=== PATIENT | female | born 1945 | race Caucasian/White ===

== ENCOUNTER → 2018-06-01 15:30 | Outpatient (CLI) | payer MEDICARE, OTHER, SELFPAY | PROVIDERS: Family Provider Family Medicine; PCP Family Medicine; Referring Provider Otolaryngology; Visit Provider Otolaryngology | DX: J32.9 Chronic sinusitis, unspecified (principal) | CPT/HCPCS: 87070; 87205 ==

== ENCOUNTER → 2020-09-05 15:42 | Outpatient (CLI) | payer MEDICARE, OTHER, SELFPAY ==
[2020-09-05 18:08] LABS: ALB/GLOB Ratio 1.1 RATIO (0.9-2.4); AST(SGOT) 22 U/L (15-37); Alanine Aminotransfer ALT/SGPT 27 U/L (13-56); Albumin, Serum 3.8 g/dL (3.2-5.0); Alkaline Phosphatase 71 U/L (45-117); Anion Gap 6 (5-15); BUN 21 mg/dL (7-18); BUN/Creat Ratio 26.9 RATIO (10-20); Calcium,Total 8.8 mg/dL (8.5-10.1); Chloride 105 mmol/L (98-107); Creatinine, Serum 0.78 mg/dL (0.55-1.02); EST Glomerular Filtration Rate 76 mL/min (>60); Est Glom Filt Rate - Afr Amer 92 mL/min (>60); Globulin 3.4 g/dL (2.2-4.2); Glucose 89 mg/dL (74-106); Magnesium 2.3 mg/dL (1.6-2.6); Potassium 3.9 mmol/L (3.5-5.1); Protein, Total 7.2 g/dL (6.4-8.2); Sodium Level 137 mmol/L (136-145); Thyroid Stim Hormone (TSH) 0.75 uIU/mL (0.358-3.74)
== END ==
PROVIDERS: PCP Family Medicine; Visit Provider Family Medicine
DX: R00.2 Palpitations (principal)
CPT/HCPCS: 36415; 80053; 83735; 84443

== ENCOUNTER → 2020-11-10 09:36 | Outpatient (CLI) | payer MEDICARE, OTHER, SELFPAY ==
[2020-11-10 12:15] LABS: Absolute Lymphocyte Count 1.19 X10^3/uL (0.83-4.51); Absolute Neutrophil Count 2.4 X10^3/uL (2.0-7.7); Basophil# 0.05 X10^3/uL; Basophil% 1.2 % (0-1); Eosinophil# 0.19 X10^3/uL; Eosinophils% 4.5 % (0-5); Hematocrit 37.4 % (37-47); Hemoglobin 11.9 g/dL (12.0-15.0); Lymphocyte # 1.19 X10^3/ul (0.83-4.51); Mean Corp Hgb Conc 31.8 g/dL (32-36); Mean Corpuscular Hgb 27.9 pg (27.0-32.0); Mean Corpuscular Volume 87.8 fL (81-99); Mean Platelet Vol. 9.6 fl (6.2-12.0); Monocyte# 0.46 X10^3/uL; Monocyte% 10.8 % (0-10); NRBC Flagged by Analyzer 0 % (0-5); Neutrophil # 2.35 X10^3/uL (2.7-7.7); Neutrophil % 55.3 % (47-70); Platelet Count 231 K/mm3 (150-450); RBC Distribution Width CV 14.2 % (11.6-14.6); RBC Distribution Width SD 45.7 fl (35.1-43.9); Red Blood Count 4.26 M/mm3 (4.2-5.4); White Blood Count 4.3 K/mm3 (4.4-11.0)
[2020-11-10 12:31] LABS: AST(SGOT) 21 U/L (15-37); Alanine Aminotransfer ALT/SGPT 26 U/L (13-56); Albumin, Serum 3.5 g/dL (3.2-5.0); Alkaline Phosphatase 64 U/L (45-117); Anion Gap 6 (5-15); BUN 19 mg/dL (7-18); BUN/Creat Ratio 24.9 RATIO (10-20); Calcium,Total 8.9 mg/dL (8.5-10.1); Chloride 106 mmol/L (98-107); Cholesterol 168 mg/dL (200); Creatinine, Serum 0.76 mg/dL (0.55-1.02); EST Glomerular Filtration Rate 78 mL/min (>60); Est Glom Filt Rate - Afr Amer 94 mL/min (>60); Globulin 3.4 g/dL (2.2-4.2); Glucose 104 mg/dL (74-106); High Density Lipoprotein 61 mg/dL; Potassium 3.8 mmol/L (3.5-5.1); Protein, Total 6.9 g/dL (6.4-8.2); Sodium Level 140 mmol/L (136-145); Triglycerides 87 mg/dL; Very Low Density Lipoprotein 17 mg/dL (5-40)
== END ==
PROVIDERS: PCP Family Medicine; Visit Provider Family Medicine
DX: E78.5 Hyperlipidemia, unspecified (principal)
CPT/HCPCS: 36415; 80053; 80061; 85025

== ENCOUNTER → 2020-11-25 12:35 | Outpatient (CLI) | payer MEDICARE, OTHER, SELFPAY ==
--- NOTE | 2020-11-25 12:39 | BI_ITS ---
MAMMOGRAPHY - BILATERAL SCREENING 3-D TOMOSYNTHESIS REASON FOR EXAM: Female, 75 years old. SCREENING PERTINENT HISTORY: No significant family history. TECHNIQUE: 2-D mammograms and 3-D Tomosynthesis of the breast (s) were performed. CAD was performed. COMPARISON: 11/15/2019 FINDINGS: The breast composition is composed of scattered fibroglandular density. Scattered benign calcifications are seen. No dense spiculated masses or suspicious microcalcifications are identified. No architectural distortion is identified. There is no skin thickening or retraction. There has been no significant change since the prior study. BI/SCREENING MAMM (CAD), BILAT IMPRESSION: No mammographic signs of malignancy. Routine yearly mammograms recommended. ASSESSMENT CATEGORY: BIRADS Category 1: Negative. A letter regarding these results will be sent to the patient by the facility within 30 days. FOLLOW UP RECOMMENDATION: Yearly follow up mammogram recommended. (A) Approximately 10% of breast cancers are not detected by mammography. A normal mammogram should not delay biopsy of a clinically suspicious abnormality. Electronically Signed: Richard Calderon MD at 11:55 EDT Tel , Service support ,
== END ==
PROVIDERS: PCP Family Medicine; Visit Provider Family Medicine
DX: Z12.31 Encounter for screening mammogram for malignant neoplasm of breast (principal)
CPT/HCPCS: 77067

== ENCOUNTER → 2020-11-27 08:14 | Outpatient (CLI) | payer MEDICARE, OTHER, SELFPAY ==
--- NOTE | 2020-11-27 08:31 | BD_ITS ---
STUDY: DUAL ENERGY X-RAY ABSORPTIOMETRY / DXA REASON FOR EXAM: Female, 75 years old. 627.8Menopausal postmenopausalBONE DENSITY REASON FOR EXAM TECHNIQUE: Bone Mineral Density (BMD) measurements of lumbar spine and bilateral hips were obtained. COMPARISON: None. FINDINGS: Lumbar Spine (L1-L4): g/cm2 (1.233) / T-score (1.7) / Z-score (4.2) Findings are suggestive of normal bone density with a low fracture risk. Left Femur Total: g/cm2 (0.784) / T-score (-1.3) / Z-score (0.6) Left Femoral Neck: g/cm2 (0.6-1) / T-score (-2.1) / Z-score (0.1) Right Femur Total: g/cm2 (0.859) / T-score (-0.7) / Z-score (1.2) Right Femoral Neck: g/cm2 (0.663) / T-score (-1.7) / Z-score (0.5) BD/Dexa Bone Density Study IMPRESSION: The patient is considered osteopenic as outlined below according to World Nik Organization (WHO) criteria with a high fracture risk. Reference Information: The T-score is the number of standard deviations above or below the standard which is normal for young adults at their peak bone mineral density. The World Health Organization (WHO) interprets the T-scores as follows: Above -1 Normal bone density Between -1 and -2.5 Osteopenia Equal to / or below -2.5 Osteoporosis As a practical clinical guideline, osteopenia may be graded as follows: Mild -1 through -1.5 Moderate -1.6 through -2.0 Severe -2.1 through -2.4 The Z-score is the number of standard deviations above or below age-matched controls. A Z-score of less than -1.5 would be considered abnormal. References: 1. NIH Osteoporosis and Related Bone Diseases www osteo.org 2. International Society for Clinical Densitometry www iscd.org 3. National Osteoporosis Foundation www nof.org Electronically Signed: Maulik Stafford MD at 10:08 EDT , Service support ,
== END ==
PROVIDERS: PCP Family Medicine; Referring Provider Family Medicine; Visit Provider Family Medicine
DX: Z78.0 Asymptomatic menopausal state (principal)
CPT/HCPCS: 77080

== ENCOUNTER → 2020-12-04 11:14 | Outpatient (CLI) | payer MEDICARE, OTHER, SELFPAY ==
--- NOTE | 2020-12-04 11:16 | RAD_ITS ---
STUDY: X-RAY - RIGHT KNEE REASON FOR EXAM: Female, 75 years old. KNEE PAIN TECHNIQUE: 4 view(s) of the knee. COMPARISON: None. FINDINGS: No acute fracture, dislocation or osseous destruction. Moderate medial compartment arthrosis. Mild lateral compartment arthrosis. Mild patellofemoral arthrosis. No significant soft tissue swelling. Small joint effusion. Minimal chondrocalcinosis. RAD/Knee 4 or More Views IMPRESSION: Right knee intact with mild/moderate osteoarthritis Electronically Signed: Taiwo Mercedes DO at 12:09 EDT Tel , Service support ,
== END ==
PROVIDERS: PCP Family Medicine; Referring Provider Family Medicine; Visit Provider Family Medicine
DX: M25.561 Pain in right knee (principal)
CPT/HCPCS: 73564

== ENCOUNTER → 2020-12-24 06:31 | Outpatient (CLI) | payer MEDICARE, OTHER, SELFPAY ==
--- NOTE | 2020-12-24 06:41 | MRI_ITS ---
ACR Level 3 findings have been noted. An addendum which confirms receipt of the report will follow. STUDY: MRI RIGHT KNEE REASON FOR EXAM: Medial right knee pain, right knee injury in October. TECHNIQUE: Standardized fat and water weighted pulse sequences were obtained in all 3 orthogonal planes. COMPARISON: Radiographs 12/04/2020. FINDINGS: There is a complex tear of the posterior horn of the medial meniscus (proton-density sagittal images 27-31). There is peripheral subluxation of the medial meniscus. There is arthrosis of the medial femorotibial compartment with marginal osteophytes and chondral thinning (T2 sagittal image 17). There is a subchondral stress fracture of the medial tibial plateau (T2 coronal images 13-19) with associated bone edema extending across the midline into the mesial aspect of the lateral tibial plateau. There is a mild sprain of the superficial fibers of the medial collateral ligament (T2 coronal image 15). Normal distal semimembranosus, gracilis and semitendinosus tendons. Normal lateral meniscus. Normal hyaline cartilage of the lateral femorotibial compartment. Normal proximal tibiofibular articulation. There is a mild sprain of the superficial fibers of the lateral collateral ligament (T2 coronal image 11). Normal popliteus tendon. Normal biceps femoris tendon. Normal anterior cruciate ligament (ACL). Normal posterior cruciate ligament (PCL). Normal congruent patellofemoral articulation. There is arthrosis of the patellofemoral compartment with chondral thinning (T2 sagittal image 10) and mild subchondral cystic change of the patella. Normal medial and lateral patellar retinaculum. Normal visualized quadriceps tendon. Normal patellar tendon. Normal Hoffa''s fat pad. There is a small joint effusion. There is a thin medial patellar plica. There is a very small popliteal cyst (T2 sagittal image 20). There is a small ganglion cyst at the posterior aspect of the medial tibial plateau near the midline (T2 coronal image 13) measuring 0.6 cm in length. There is edema in the anterior subcutis adipose space. The otherwise visualized osseous structures are unremarkable. MRI/Lower Ext Joint Only (Routine) IMPRESSION: Medial meniscal tear. Subchondral stress fracture of the medial tibial plateau. Mild sprains of the medial collateral and lateral collateral ligaments. Arthrosis of the medial femorotibial and patellofemoral compartments. Small joint effusion. Very small popliteal cyst. Small posterior ganglion cyst. Electronically Signed: Raj Mccall MD at 8:36 EDT Tel , Service support ,
== END ==
PROVIDERS: PCP Family Medicine; Referring Provider Family Medicine; Visit Provider Family Medicine
DX: M25.561 Pain in right knee (principal)
CPT/HCPCS: 73721

== ENCOUNTER → 2020-12-26 15:36 | Outpatient (CLI) | payer MEDICARE, OTHER, SELFPAY | PROVIDERS: PCP Family Medicine; Referring Provider Otolaryngology; Visit Provider Otolaryngology | DX: J32.9 Chronic sinusitis, unspecified (principal) | CPT/HCPCS: 87070; 87077; 87205 ==

== ENCOUNTER → 2021-02-09 12:25 | Outpatient (CLI) | payer MEDICARE, OTHER, SELFPAY ==
--- NOTE | 2021-02-09 12:27 | ECHOD_ITS ---
Reason For Study: ARRHYTHMIA Procedure This was a 2D Doppler, Color Flow transthoracic echocardiogram. Exam performed in department. Left Ventricle Normal LV size. Left ventricular systolic function is normal. The estimated ejection fraction is 60 %. No regional wall motion abnormalities noted. Right Ventricle Normal RV size. Normal systolic function. Atria Normal left atrium. Normal right atrium. Mitral Valve Normal mitral valve. Tricuspid Valve Normal tricuspid valve. Mild (1+) tricuspid valve insufficiency. Pulmonary artery systolic pressure is 35 mmHg. Aortic Valve Normal aortic valve. Trisinus/trileaflet aortic valve. Pulmonic Valve Normal pulmonic valve. Great Vessels Normal aortic root. Pericardium/Pleural No pericardial effusion. MMode/2D Measurements & Calculations LVIDd: 3.8 cm IVSd: 0.79 cm Ao root diam: 3.3 cm LVIDs: 2.3 cm LVPWd: 0.81 cm RVDd: 3.3 cm FS: 38.7 % LAV(MOD-bp): 36.5 ml LA A4 area: 14.0 cm2 LA dimension(2D): 3.5 cm LAV(MOD-bp) Indexed: 21.5 ml/m2 LAV(MOD-sp2): 33.3 ml LAV(MOD-sp4): 36.0 ml RA A4 area: 11.5 cm2 Doppler Measurements & Calculations MV E max aryan: 67.3 cm/sec Lat Peak E' Aryan: 7.4 cm/sec Med Peak E' Aryan: 4.3 cm/sec E/E' lat: 9.1 E/E' med: 15.6 Ao V2 max: 174.9 cm/sec LV V1 max: 132.6 cm/sec PA V2 max: 91.3 cm/sec Ao max P.8 mmHg LV V1 max P.0 mmHg TR max aryan: 278.1 cm/sec TR max P.9 mmHg ECHO/Echo Complete Interpretation Summary Normal LV size. Left ventricular systolic function is normal. The estimated ejection fraction is 60 %. Pulmonary artery systolic pressure is 35 mmHg. Ordering Physician: Will Lainez Referring Physician: ANDRES GLOVER Performed By: Angelita Coto, RDCS, RVT
== END ==
PROVIDERS: PCP Family Medicine; Referring Provider Internal Medicine Cardiovascular Disease; Visit Provider Internal Medicine Cardiovascular Disease
DX: R01.1 Cardiac murmur, unspecified (principal)
CPT/HCPCS: 93306

== ENCOUNTER 2021-06-03 15:00 | Outpatient (CLI) | payer MEDICARE, OTHER, SELFPAY ==
[2021-06-11 22:06] LABS: Alternaria tenuis <0.10 kU/L (Class 0); Ash, White <0.10 kU/L (Class 0); Aspergillus fumigatus <0.10 kU/L (Class 0); Bermuda Grass <0.10 kU/L (Class 0); Birch <0.10 kU/L (Class 0); Black Walnut <0.10 kU/L (Class 0); Cat Hair / Dander,Stand <0.10 kU/L (Class 0); Cedar, Mountain <0.10 kU/L (Class 0); Cladosporium herbarum <0.10 kU/L (Class 0); Cockroach, American <0.10 kU/L (Class 0); Cottonwood <0.10 kU/L (Class 0); D farinae Mite <0.10 kU/L (Class 0); D pteronyssinus <0.10 kU/L (Class 0); Dog Epithelia <0.10 kU/L (Class 0); Elm, American White <0.10 kU/L (Class 0); Immunoglobulin E 35 IU/mL (6-495); Maple/Box Elder <0.10 kU/L (Class 0); Mulberry, White <0.10 kU/L (Class 0); Oak, White <0.10 kU/L (Class 0); Pecan <0.10 kU/L (Class 0); Penicillium Notatum <0.10 kU/L (Class 0); Pigweed, Rough <0.10 kU/L (Class 0); Ragweed, Short/Common <0.10 kU/L (Class 0); Russian Thistle <0.10 kU/L (Class 0); Sheep Sorrel <0.10 kU/L (Class 0); Sycamore, American <0.10 kU/L (Class 0); Timothy Grass <0.10 kU/L (Class 0)
[2021-06-11 22:53] LABS: Mouse Urine <0.10 kU/L (Class 0)
== END 2021-06-03 23:59 | disposition home or self-care (01) ==
PROVIDERS: PCP Family Medicine; Visit Provider Otolaryngology
DX: R09.89 Other specified symptoms and signs involving the circulatory and respiratory systems (principal); J32.8 Other chronic sinusitis; T78.40XA Allergy, unspecified, initial encounter
CPT/HCPCS: 36415; 82785; 86003

== ENCOUNTER → 2021-07-02 | Outpatient (CLI) | payer MEDICARE, OTHER, SELFPAY | END | disposition home or self-care (01) | PROVIDERS: PCP Family Medicine; Referring Provider Otolaryngology; Visit Provider Otolaryngology | DX: J32.8 Other chronic sinusitis (principal) | CPT/HCPCS: 87070; 87205 ==

== ENCOUNTER → 2021-11-18 | Outpatient (CLI) | payer MEDICARE, OTHER, SELFPAY ==
[2021-11-18 13:12] LABS: AST(SGOT) 23 U/L (15-37); Alanine Aminotransfer ALT/SGPT 25 U/L (13-56); Albumin, Serum 3.6 g/dL (3.2-5.0); Alkaline Phosphatase 71 U/L (45-117); Anion Gap 8 (5-15); BUN 20 mg/dL (7-18); BUN/Creat Ratio 22.9 RATIO (10-20); Calcium,Total 9.2 mg/dL (8.5-10.1); Chloride 106 mmol/L (98-107); Cholesterol 169 mg/dL (200); Creatinine, Serum 0.87 mg/dL (0.55-1.02); EST Glomerular Filtration Rate 67 mL/min (>60); Est Glom Filt Rate - Afr Amer 81 mL/min (>60); Globulin 3.6 g/dL (2.2-4.2); Glucose 103 mg/dL (74-106); High Density Lipoprotein 66 mg/dL; Potassium 4.1 mmol/L (3.5-5.1); Protein, Total 7.2 g/dL (6.4-8.2); Sodium Level 141 mmol/L (136-145); Triglycerides 79 mg/dL; Very Low Density Lipoprotein 16 mg/dL (5-40)
== END | disposition home or self-care (01) ==
LOC: MFPLAB 09:43
PROVIDERS: PCP Family Medicine; Referring Provider Family Medicine; Visit Provider Family Medicine
DX: E78.5 Hyperlipidemia, unspecified (principal)
CPT/HCPCS: 36415; 80053; 80061

== ENCOUNTER → 2021-11-20 | Outpatient (CLI) | payer MEDICARE, OTHER, SELFPAY ==
--- NOTE | 2021-11-20 15:30 | RAD_ITS ---
STUDY: XR Knee Complete 4 Views or More 11/20/2021 3:43 PM REASON FOR EXAM: Female, 76 years old. rigth knee pain TECHNIQUE: XR Knee Complete 4 Views or More RIGHT COMPARISON: 5.9.22 FINDINGS: Normal visualized distal femur. Normal visualized proximal tibia and fibula. Normal proximal tibiofibular articulation. There is severe degenerative arthrosis of the medial femorotibial compartment with severe joint space narrowing. Normal lateral femorotibial compartment. There is moderate degenerative arthrosis of the patellofemoral articulation. There is a soft tissue prominence in the suprapatellar region suggesting a small volume joint effusion. The soft tissue structures are unremarkable. RAD/Knee 4 or More Views IMPRESSION: Degenerative arthrosis. Effusion, as described above. Electronically Signed: Rio Pickard MD at 15:45 EDT ,
== END | disposition home or self-care (01) ==
LOC: MTRAD 15:26
PROVIDERS: PCP Family Medicine; Referring Provider Family Medicine; Visit Provider Family Medicine
DX: M25.561 Pain in right knee (principal)
CPT/HCPCS: 73564

== ENCOUNTER → 2021-12-30 | Outpatient (CLI) | payer MEDICARE, OTHER, SELFPAY ==
--- NOTE | 2021-12-30 13:42 | BI_ITS ---
MAMMOGRAPHY - BILATERAL SCREENING REASON FOR EXAM: Female, 76 years old. Routine annual screening examination. PERTINENT HISTORY: Mother with breast cancer. Remote right excisional breast biopsy. TECHNIQUE: Digital bilateral breast latasha (3D mammographic acquisition) in the CC and MLO projections. 2-D mediolateral oblique (MLO) and craniocaudad (CC) views of both breasts were obtained. CAD: Full Field Digital Mammography with Computer Added Detection was performed. COMPARISON: Comparison is made with prior study 11/25/2020. FINDINGS: Breast Composition: There are scattered areas of fibroglandular density. There are no dominant masses or suspicious calcifications. No other significant abnormalities are identified. There has been no significant change since the prior study. BI/SCRN MAMM (CAD)W/LATASHA BILAT IMPRESSION: Stable bilateral screening mammogram. Yearly follow-up mammogram recommended. (A) ASSESSMENT CATEGORY: BIRADS Category 1: Negative. A letter regarding these results will be sent to the patient by the facility within 30 days. Approximately 10% of breast cancers are not detected by mammography. A normal mammogram should not delay biopsy of a clinically suspicious abnormality. [id number] Electronically Signed: Maulik Stafford MD at 15:07 EST ,
== END | disposition home or self-care (01) ==
LOC: OPBI 13:41
PROVIDERS: PCP Family Medicine; Visit Provider Family Medicine
DX: Z12.31 Encounter for screening mammogram for malignant neoplasm of breast (principal)
CPT/HCPCS: 77063; 77067

== ENCOUNTER → 2022-06-19 | Outpatient (CLI) | payer MEDICARE, OTHER, SELFPAY ==
--- NOTE | 2022-06-19 08:45 | CT_ITS ---
CT RIGHT LOWER EXTREMITY WITH 3-D IMAGING CLINICAL INDICATION: templating right TKA COMPARISON: TECHNIQUE: Axial CT images of the RIGHT lower extremity was performed without IV contrast material. Coronal and sagittal reformats were provided. RADIATION DOSAGE (If Supplied By Facility): CTDIvol = ( 18.76 ) mGy, DLP = ( 1080.05 ) mGycm FINDINGS: Normal right hip with no fracture or dislocation. Degenerative changes at the right knee with degenerative spurring at the femoral tibial compartments. There is a focal small cortical depression at the medial tibial plateau. Narrowing is noted of the patellofemoral compartment laterally. Mild suprapatellar effusion. There are cystic changes of the talus. No acute bony injury at the ankle. The superficial soft tissues are unremarkable without evidence of edema, hematoma, or foreign body. CT/Extremity Lower without Contra IMPRESSION: Small cortical depression of the medial tibial plateau. Degenerative changes at the knee. Mild suprapatellar effusion. Electronically Signed: Celso Pang DO at 23:05 EDT Reading Location ID and State: [facility] / [place] Tel [phone], Service support ,
== END | disposition home or self-care (01) ==
LOC: CT 08:44
PROVIDERS: PCP Family Medicine; Referring Provider Orthopaedic Surgery; Visit Provider Orthopaedic Surgery
DX: M17.11 Unilateral primary osteoarthritis, right knee (principal)
CPT/HCPCS: 73700

== ENCOUNTER → 2022-06-24 | Outpatient (CLI) | payer MEDICARE, OTHER, SELFPAY ==
[2022-06-24 10:30] LABS: Absolute Lymphocyte Count 1.47 X10^3/uL (0.83-4.51); Absolute Neutrophil Count 3.6 X10^3/uL (2.0-7.7); Basophil# 0.04 X10^3/uL; Basophil% 0.7 % (0-1); Eosinophil# 0.08 X10^3/uL; Eosinophils% 1.4 % (0-5); Hematocrit 39.8 % (37-47); Hemoglobin 12.7 g/dL (12.0-15.0); Lymphocyte # 1.47 X10^3/ul (0.83-4.51); Lymphocyte % 25.7 % (19-41); Mean Corp Hgb Conc 31.9 g/dL (32-36); Mean Corpuscular Hgb 27.6 pg (27.0-32.0); Mean Corpuscular Volume 86.5 fL (81-99); Monocyte# 0.48 X10^3/uL; Monocyte% 8.4 % (0-10); NRBC Flagged by Analyzer 0 % (0-5); Neutrophil # 3.63 X10^3/uL (2.7-7.7); Neutrophil % 63.5 % (47-70); Platelet Count 278 K/mm3 (150-450); RBC Distribution Width CV 15.2 % (11.6-14.6); RBC Distribution Width SD 48.3 fl (35.1-43.9); White Blood Count 5.7 K/mm3 (4.4-11.0)
[2022-06-24 11:13] LABS: ALB/GLOB Ratio 1.2 RATIO (0.9-2.4); AST(SGOT) 23 U/L (15-37); Alanine Aminotransfer ALT/SGPT 29 U/L (13-56); Albumin, Serum 3.8 g/dL (3.2-5.0); Alkaline Phosphatase 70 U/L (45-117); Anion Gap 7 (5-15); BUN 22 mg/dL (7-18); BUN/Creat Ratio 28.8 RATIO (10-20); Calcium,Total 8.9 mg/dL (8.5-10.1); Chloride 103 mmol/L (98-107); Cholesterol 170 mg/dL (200); Creatinine, Serum 0.76 mg/dL (0.55-1.02); EST Glomerular Filtration Rate 78 mL/min (>60); Est Glom Filt Rate - Afr Amer 94 mL/min (>60); Globulin 3.2 g/dL (2.2-4.2); Glucose 104 mg/dL (74-106); High Density Lipoprotein 67 mg/dL; Sodium Level 139 mmol/L (136-145); Triglycerides 98 mg/dL; Very Low Density Lipoprotein 20 mg/dL (5-40)
== END | disposition home or self-care (01) ==
LOC: MFPLAB 09:25
PROVIDERS: PCP Family Medicine; Visit Provider Family Medicine
DX: Z01.818 Encounter for other preprocedural examination (principal); E78.5 Hyperlipidemia, unspecified
CPT/HCPCS: 36415; 80053; 80061; 85025

== ENCOUNTER 2022-07-20 09:26 | Inpatient (IN) | payer MEDICARE, OTHER, SELFPAY ==
[2022-07-09 12:39] LABS: International Normalized Ratio 0.9; Prothrombin Time (Protime)PT. 12.2 SECONDS (11.7-14.9)
[2022-07-09 12:41] LABS: Partial Thromboplast Time 26.8 Seconds (24.1-36.2)
[2022-07-09 12:50] LABS: Hemoglobin A1c 5.8 % (3.8-5.6)
[2022-07-09 12:53] LABS: Magnesium 2.5 mg/dL (1.6-2.6)
[2022-07-10 04:07] LABS: Fructosamine 240 umol/L (0-285)
[2022-07-20] VITALS (12 sets, daily range): BP systolic 96–156; BP diastolic 49–71; PULSE 70–89; RESP 16–18; TEMP 36.4–37.2; O2SAT 93–100; BMI 28.5; BMI 31.1
--- NOTE | 2022-07-20 | KNEE_PTH ---
PATIENT: ELOY BEYER LOC: MS3 U#:[id number] AGE/SX: 77/F [place] [facility] [place]: Dr. Saud Gates DO : 1945 BED: 1 DIS: 07/22/2022 SPEC #: [id number] RECD: 07/20/22 15:26 STATUS: YOGESH RERudolph #: [id number] SARAI: 07/20/22 00:[address]: Saud Gates DEPT: SURGICAL PATHOLOGY RECD BY: Truman Lomas ENTERED: 07/21/22 09:34 SP TYPE: TOTAL KNEE OTHR DR: Dr. Cristopher Kline MD Tissues: Knee, NOS Procedures: Decalcification bone/plaque Surgery Specimen Level IV HEADER OPERATION: ERAS, total knee replacement robotic arm assist PRE-OP DIAGNOSIS: Right knee pain TISSUE SUBMITTED: Right knee bone and soft tissue MICROSCOPIC DIAGNOSIS Bone and tissue of right knee, total knee resection: Severe degenerative joint disease. Mild synovial hyperplasia. AM:dexter 07/23/2022 MICROSCOPIC DESCRIPTION Slides are reviewed. GROSS DESCRIPTION Received is one container designated bone and soft tissue right knee. The specimen consists of multiple fragments of haile-yellow bone measuring in aggregate 10.0 x 9.0 x 3.0 cm. Also in the specimen container are multiple fragments of yellow-white soft tissue measuring in aggregate 7.0 x 4.0 x 1.5 cm. A number of bony fragments contain articular surfaces consistent with tibial plateau and femoral condyle and displaying prominent osteophyte formation, eburnation and bone erosion. [employer] sections are submitted in two cassettes as follows: 1 - soft tissue, 2 - bone after decalcification. / SJ:dexter 07/21/2022 TC:5 [facility]: [id number]
[2022-07-20] MEDS: Celecoxib 200 MG Capsule 400 MG PO (10:12)
[2022-07-20] MEDS: Scopolamine 1mg/72hr Patch 1 PATCH TD (10:12)
[2022-07-20] MEDS: Gabapentin 600 MG Tablet PO (10:12)
[2022-07-20] MEDS: Acetaminophen 500 MG Tablet 1000 MG PO ×2 (10:12→20:26)
[2022-07-20] MEDS: Magnesium 1 GM over 15 mins IV (10:12)
[2022-07-20 10:55] LABS: Bedside Glucose 94 mg/dL (74-106)
--- NOTE | 2022-07-20 12:05 | HP.PCM_ITS ---
History and Physical Date of Admission: 07/20/22 [facility] [address] [place] [address] OFFICE VISIT Date of Service:? 07/09/22 MR#: [id number] Acct: [id number] Name:ELOY MCDANIELS Rep #: [id number] : 1945 ? ? Provider: Dr. Saud Gates, DO Age/Sex:? 77/F ? ? [place] [facility] [place] Status: Signed Intake Intake Visit Reasons:?right knee Allergies morphine Allergy (Verified 07/09/22 09:00) rash Medications Saccharomyces boulardii 250 mg capsule (Daily Probiotic (S. boulardii)) 250 mg PO BID Check with primary doctor 01/28/21 [History Confirmed 07/09/22] acetaminophen 650 mg tablet,extended release (Tylenol 8 Hour) 650 mg PO Q12H Check with primary doctor 01/28/21 [History Confirmed 07/09/22] atorvastatin 10 mg tablet (Lipitor) 10 mg PO QHS Check with primary doctor 01/28/21 [History Confirmed 07/09/22] calcium carbonate 500 mg calcium (1,250 mg) tablet (Calcium 500) 500 mg PO BID Check with primary doctor 01/28/21 [History Confirmed 07/09/22] fluticasone propionate 50 mcg/actuation nasal spray,suspension (Allergy Relief (fluticasone)) 1 spray intranasal BID PRN Allergy Symptoms 01/28/21 [History Confirmed 07/09/22] multivitamin 1 tab PO DAILY Check with primary doctor 01/28/21 [History Confirmed 07/09/22] sertraline 25 mg tablet (Zoloft) 25 mg PO DAILY Check with primary doctor 01/28/21 [History Confirmed 07/09/22] omeprazole 20 mg capsule,delayed release 20 mg PO .as needed Check with primary doctor 05/31/22 [History Confirmed 07/09/22] PFSH Medical History? Allergic rhinitis Ambulates with cane Anxiety Anxiety and depression Arthritis Cardiac murmur Cardiology follow-up encounter Cataract (lens) fragments in eye following cataract surgery, bilateral (~2018) Fractured tibia (10/2020) GERD (gastroesophageal reflux disease) High cholesterol History of cyst of breast (~1989) History of echocardiogram History of edema Hyperlipidemia Intermittent palpitations Leg cramps Non-smoker PVC (premature ventricular contraction) Scalp psoriasis Seasonal allergies Varicose veins of left lower extremity Wears glasses Surgical History? History of carpal tunnel release (~2009) History of cholecystectomy (~1988) History of hysterectomy (~1987) History of left heart catheterization (2009) History of nasal septoplasty History of tonsillectomy History of tubal ligation (~1973) Social History? Smoking Status:? Never smoker alcohol intake:? current alcohol intake frequency: 0-2 drinks per day HPI right knee Details: Parts of this documentation were recorded by a scribe, this documentation accurately reflects the service provided and the decisions made by me, Dr. Saud Gates, DO 07/09/22 0803. ELOY BEYER is a 77 year old F here today for right knee IOVERA treatment. Denies any changes.? Ortho Exam General General: Yes no acute distress Neurologic: Yes alert and Yes oriented x3 Psychologic: Yes reasonable and appropriate Right Knee Skin/Wound: Yes CDI, No erythema, No ecchymosis and No swelling Knee ROM: Yes ROM-Extension -20 to 0 (-7) and Yes ROM-Flexion 0-140 (120) Examination: Yes Med jt line tenderness, Yes Lat jt line tenderness and Yes TTP Pes Anserine Stability: NML: Anterior Drawer, NML: Posterior Drawer, NML: Valgus 30 and NML: Varus 30 Patella Translation: 1 Patella Grind: Yes KNEE: synovial hypertrophy, venous malformation around her ankle which are not painful. 2/4 pulses. Left Knee Patella Translation: 1 Head: Normocephalic Atraumatic Chest: symmetrical rise, non-labored breathing, no audible wheeze Abdomen: no guarding, non-rigid Office Procedures Iovera Procedure Details:: Preoperative diagnosis : Right DJD Postoperative diagnosis: Same Procedure: Cryotherapy with Iovera device to anterior femoral cutaneous nerve and 2 branches of the infrapatellar saphenous nerve III nerves in total Description of procedure: Patient was brought back to the procedure room the operative extremity was identified by both patient and physician.? The PIP flexion crease was measured to the midpoint of the patella and this distance was divided in 3 resulting in 10 cm location proximal to the midpoint of the patella.? This line was extended medial and lateral to the extent of the edges of the patella.? This was our treatment line for the anterior femoral cutaneous nerve.? A second treatment line was made 5 cm medial to the inferior pole of the patella and 5 cm distally.? The leg was prepped with alcohol and Betadine.? Lidocaine with epi was used along the treatment lines.? Using the Iovera device treatment lines were treated with 1 minute cycles.? Reproduction of paresthesias was monitored in the area of nerve distribution.? Once all 3 nerves were treated across the 2 treatment lines patient was cleaned and a light dressing with 4 x 4 and Israel wrap was applied.? Patient tolerated the procedure without complication. Supplemental Info 11/20/2021 x-ray right knee: Advanced degenerative arthrosis worse medial compartment with subchondral cystic changes of the medial tibial plateau with subchondral sclerosis there is depression of the most medial aspect of the tibial plateau, moderate patellofemoral degenerative change 12/24/2020 MRI right knee: Complex tear posterior horn medial meniscus with peripheral subluxation arthrosis of the medial compartment subchondral stress fracture of the medial tibial plateau with associated bone edema extending across the midline to the medial aspect of the lateral tibial plateau, sprain of the superficial MCL , sprain of the LCL, patellofemoral arthrosis with subcho ndral cystic changes, medial plica small popliteal cyst ganglion 6 to posterior aspect of the medial tibial plateau. 12/04/2020 x-ray right knee: Moderate to severe medial joint space narrowing, moderate patellofemoral arthrosis Coding Level of Care Code Attention Fior Diagnoses Right knee pain? M25.561 Assessment and Plan Assessment and Plan (1) Right knee pain: ?Status:?Acute ? ? ? Orders: Orders Iovera Today M17.11 - Unilateral primary osteoarthritis, right knee ? Plan Right knee iovera procedure performed without complication patient tolerated well. 07/09/22 0952 <Electronically signed by Saud Gates DO> Date Saud Medel Signature: Date (if applicable) ? CC: ? ~I have examined the patient and the H&P has been reviewed. There are no clinical changes since date of exam.
[2022-07-20] MEDS: Cefazolin 2 GM in 0.9% Normal Saline 100 ML IV (12:18)
[2022-07-20] MEDS: TXA 1000mg in NS100 100ml (IVPB at Incision) 660 MG IV (12:28)
[2022-07-20] MEDS: dexAMETHasone 10 MG/ML Vial IV (13:09)
[2022-07-20] MEDS: TXA 1000mg in NS100 100ml (IVPB at Closure) 660 MG IV (13:09)
[2022-07-20] MEDS: Lactated Ringers 1,000 ML 125 ML IV ×2 (14:00→20:16)
[2022-07-20] MEDS: 0.9% Saline Lock 10 ML Syringe IV (14:15)
[2022-07-20] MEDS: Epinephrine (1 mg/ml) 1 MG/ML VIAL (14:15)
[2022-07-20] MEDS: Bupivacaine 0.5% PF 10 ML VIAL (14:15)
[2022-07-20] MEDS: dexAMETHasone 4 MG/ML Vial (14:15)
--- NOTE | 2022-07-20 14:47 | OP.PCM_ITS ---
Operative Report Date of Procedure: 07/20/22 Preoperative diagnosis: Right knee DJD Postoperative diagnosis: Same Procedure: Right total knee arthroplasty CT guided Robotic Assisted Implant: [place] triathlon cemented, femoral component size 4, tibial baseplate size 4, asymmetric patella size 35, polyethylene X3 size 9 CS Anesthesia: Spinal with adductor canal block Tourniquet time: 22 minutes at 300 mmHg Complications: None Condition: Stable to PACU Estimated blood loss: 200 cc Bench Press Operator Parker Manley. My physician physician assistant primary care was a vital part of this case. He was important in appropriate retraction during the case, and protection of soft tissues during procedure. His intimate knowledge of the case and my steps aided in safe and expedient completion of the procedure as well as appropriate position of the extremity during the case. He was also vital in assisting with closure under my direct supervision. Indication for procedure: This is a 77-year-old female with long standing degenerative joint disease of the knee who has failed conservative treatment and wished to proceed with elective total knee arthroplasty. Risk benefits and alternatives were reviewed including; risk of bleeding, infection, nerve artery and tissue damage, continued pain, postoperative stiffness, venous thromboembolism, need for postoperative rehabilitation, mechanical feel to the knee, and expected postoperative course. The pre- operative CT and templating was performed with component sizing. Procedure: The patient was met in the preoperative holding area. The operative extremity was identified by both patient and physician and was marked. Patient was met by anesthesia. An adductor canal block was placed by anesthesia post operatively the patient was brought back to the operating room on a wheeled cart and transferred to the operating table in the supine position. Anesthesia was started. A well-padded tourniquet was placed on the operative extremity. The patient was prepped and draped in the usual sterile fashion. A timeout was called to ensure the proper patient procedure and extremity were being contemplated. An esmarch was used to exsanguinate the extremity. The tourniquet was inflated. A 10 blade scalpel was used to make a midline incision down through the skin and subcutaneous tissue. Skin retractors placed. Bovie and Aquamantis were used to perform meticulous hemostasis. full-thickness flaps were elevated medial and lateral along the joint capsule. A deep blade scalpel was used to perform a medial parapatellar arthrotomy. The knee was brought to full extension. A bovie was used to release the soft tissues off the most proximal aspect of the medial tibial plateau, a three-quarter inch curved osteotome was also used in this process. The infrapatellar fat pad was excised. The suprapatellar fat pad was excised partially anteriorolateraly and portion the anterioromedial pad was elevated from the femur. At this point our intra- articular femoral array was placed at a 45 degree angle proximal and posterior to the medial epicondyle. femoral checkpoint was placed at this time. Our ti bial array was placed greater than 1 hands breath below the incision at a 20 degree angle stab incisions were made with a 15 blade scalpel and pins were placed and attached to the tibial array , tibial checkpoint was placed in the proximal tibial metaphysis. Tourniquet was let down. At this point registration mohamud were taken throughout the knee . Once the knee was registered we then tensioned the medial and lateral ligaments in extension and 90 degrees of flexion. We then used these numbers to adjust our components within parameters to balance the knee in both flexion and extension once this was done on our monitor we then proceeded with using the robotic arm to make our tibial plateau cut, anterior and posterior chamfer and distal femur cuts. we removed the cut fragments with the use of a bovie and Samantha, we did use a lamina pet feeder to insure we visualized and removed all posterior osteophytes and at this time also used the Aquamantis on the posterior joint capsule. we then trialed and achieved the desired plan with a well-balanced knee. we used the green probe to heath the corresponding tibial rotation based on our CT template. Lug holes were drilled in the femur the tibia preparation was completed with the appropriate sized base plate pinned based on previous rotation heath. An appropriate sized fin punch was used on the tibia and the patella was prepared by first using a caliper to ensure sufficient bone stock and a patellar reamer to remove the desired amount of bone. lug holes drilled for an asymmetric poly. We then brought the knee through range of motion with excellent patellar tracking. We thoroughly irrigated the knee. Trial components were removed a posterior capsular injection was preformed with our standard cocktail. In addition the aqua Mantis was also used to aid in hemostasis. Betadine rinse was allowed to sit and washed out completely. Components were cemented in the usual fashion excess cement was removed with a Pearson elevator. Aricept rinse was then used followed by several more liters of irrigation after it was allowed to sit. The joint capsule was closed with #1 Ethibond [id number] followed by Vicryl in the subcutaneous tissues with jv in the skin. Arrays and checkpoints were removed prior to closure all counts were correct stab incisions were closed with a staple standard dressing in the form of Mepilex AG for the main incision and a small Mepilex over the pin holes. Thigh-high LOUIE hose applied over top of dressing. Patient tolerated the procedure well and was directed to PACU in stable condition . There were no intraoperative complications.
--- NOTE | 2022-07-20 15:00 | RAD_ITS ---
STUDY: X-RAY - RIGHT KNEE REASON FOR EXAM: Female, 77 years old. Post op -- AP and Lateral xray of operative knee in PACU TECHNIQUE: 2 view(s) of the knee. COMPARISON: Comparison is made with prior study dated November 20, 2021. FINDINGS: The patient is status post total knee replacement. There is good alignment. Postoperative soft tissue changes. RAD/Knee 1 or 2 Views IMPRESSION: Status post total knee replacement. There is good alignment. Postoperative soft tissue changes. Electronically Signed: Maulik Stafford MD at 15:47 EDT ,
[2022-07-20] MEDS: Cefazolin 1 GM/50 ML BAG IV (16:07)
[2022-07-20] MEDS: Ketorolac 15 MG/ML Vial IV (16:07)
[2022-07-20] MEDS: oxyCODONE 5 MG Tablet PO (20:26)
[2022-07-20] MEDS: Senna/Docusate Sodium 1 Tablet 2 TABLET PO (20:26)
[2022-07-20] MEDS: Atorvastatin Calcium 10 MG Tablet PO (20:27)
[2022-07-21 01:26] VITALS: BP 112/63; PULSE 71; RESP 16; TEMP 36.6; O2SAT 97
[2022-07-21] MEDS: Cefazolin 1 GM/50 ML BAG IV ×2 (03:45→11:42)
[2022-07-21 05:26] VITALS: BP 118/65; PULSE 71; RESP 16; TEMP 36.6; O2SAT 100
[2022-07-21 05:30] VITALS: BP 118/65; PULSE 71; RESP 16; TEMP 36.6; O2SAT 100
[2022-07-21] MEDS: APIXABAN 2.5 MG TABLET (WCH) PO ×3 (05:42→20:14)
[2022-07-21] MEDS: Acetaminophen 500 MG Tablet 1000 MG PO ×3 (05:42→20:15)
[2022-07-21 05:50] LABS: Hematocrit 33.3 % (37-47); Hemoglobin 11.1 g/dL (12.0-15.0); Mean Corp Hgb Conc 33.3 g/dL (32-36); Mean Corpuscular Volume 86.9 fL (81-99); Mean Platelet Vol. 8.6 fl (6.2-12.0); Platelet Count 252 K/mm3 (150-450); RBC Distribution Width CV 14.6 % (11.6-14.6); Red Blood Count 3.83 M/mm3 (4.2-5.4); White Blood Count 12.4 K/mm3 (4.4-11.0)
[2022-07-21 06:33] LABS: Anion Gap 8 (5-15); BUN 17 mg/dL (7-18); BUN/Creat Ratio 17.1 RATIO (10-20); Chloride 98 mmol/L (98-107); EST Glomerular Filtration Rate 57 mL/min (>60); Est Glom Filt Rate - Afr Amer 69 mL/min (>60); Estimated Creatinine Clearance 36.67 ml/min; Glucose 136 mg/dL (74-106); Potassium 4.5 mmol/L (3.5-5.1); Sodium Level 132 mmol/L (136-145)
[2022-07-21 09:26] VITALS: BP 116/66; PULSE 67; RESP 16; TEMP 36.6; O2SAT 98
[2022-07-21] MEDS: oxyCODONE 5 MG Tablet PO ×2 (09:29→20:19)
[2022-07-21] MEDS: Senna/Docusate Sodium 1 Tablet 2 TABLET PO (09:30)
[2022-07-21] MEDS: Sertraline 50 MG Tablet 25 MG PO (09:30)
[2022-07-21] MEDS: Pantoprazole Sodium 20 MG Tablet PO (09:30)
--- NOTE | 2022-07-21 11:40 | CASEMGMT ---
Addendum entered by Swati Faria 07/21/22 14:54: Noted 2 rx sent to [facility] and one to [facility]. MILENA VASQUEZ into pt room to make aware. Pt states she does not need the acetaminophen as she has it at home. Pt states [facility] already called her about the rx there. Pt would like her eliquis sent to the room. TC to [facility] pharmacy, spoke with Windy and cost of med is zero with applying savings card. They will deliver to room. Original Note: MILENA VASQUEZ Assessment: Face to Face with pt for initial transition planning/care coordination assessment. MILENA VASQUEZ introduced self and role at [facility], pt voices understanding and consents to assessment. Pt is A/O x4 and answers all questions appropriately at this time. Pt son present in room as well as nurse, pt agreeable to assessment. Care providers, pharmacy, and demographics verified/updated. Admitting Dx: Rt total knee with aren PCP:Eliud Specialists:Kody, ortho; Harvey, ENT; Quang, derm; Fatou, cardio Preferred Pharmacy: [facility] Insurance: [facility], AARP Prescription Benefit: yes LNOK: Red Montoya, Living Arrangements: Pt lives with in a two story home, pt lives on main level and dtr lives in basement. There are 1-2 steps to enter the home with a rail. Pt reports she was I in ADL's prior to surgery and she has family and friends who will assist her post surgery. Pt denies concerns at home. Transportation: Pt drives self and denies concerns with transportation. Pt family or friends will transport her until she is able to drive again. DME/HHC/SNF: Pt has grab bars over the toilet, cane which she used prior to surgery, FWW, quad cane and shower chair. Pt denies hx of HHC or SNF stays. Pt states no concerns with going home at time of dc. She has outpt therapy set up on 07/23/22 at [facility]. Pt states no further concerns/needs. CM to follow. Advised pt to ask CM if any further question/concerns/needs arise, voices understanding. Pt Goal: Home with outpt therapy set up Plan: Home with outpt therapy set up
--- NOTE | 2022-07-21 12:58 | PCM.PN.ORT ---
Subjective Subjective Seen and examined. Doing okay pain controlled. Denies nausea vomiting shortness of breath or chest pain Objective Data Objective Data Vital Signs: Vital Signs Temp Pulse Resp BP Pulse Ox O2 Del Method O2 Flow Rate 97.8 F 67 16 116/66 98 Room Air 4 07/21/22 09:26 07/21/22 09:26 07/21/22 09:26 07/21/22 09:26 07/21/22 09:26 07/21/22 09:07/20/22 16:45 Oxygen Flow Rate (L/min) 4 Oxygen Delivery Method Room Air Weight: 170 lb 1.598 oz Body Mass Index (BMI) 31.1 Intake & Output: Intake and Output for Last 24 Hours 07/19/22 07/20/22 07/21/22 23:59 23:59 23:59 Intake Total 2298.66 / 2298.66 400 / 400 Balance 2298.66 / 2298.66 400 / 400 Lab / Micro Data Result Diagrams: 07/21/22 05:35 07/21/22 05:35 Labs: Laboratory Results - last 24 hr 07/21/22 05:35: WBC 12.4 H, RBC 3.83 L, Hgb 11.1 L, Hct 33.3 L, MCV 86.9, MCH 29.0, MCHC 33.3, RDW Std Deviation 47.0 H, RDW Coeff of Declan 14.6, Plt Count 252, MPV 8.6 07/21/22 05:35: Sodium 132 L, Potassium 4.5, Chloride 98, Carbon Dioxide 26.0, Anion Gap 8, BUN 17, Creatinine 1.00, Estim Creat Clear Calc 36.67, Est GFR (MDRD) Af Amer 69, Est GFR (MDRD) Non-Af 57 L, BUN/Creatinine Ratio 17.1, Glucose 136 H, Calcium 9.0 Micro: Microbiology 07/09/22 12:08 Nasal Secretion Nasal Screen MRSA/MSSA - Final Radiography Diagnostic Testing: Radiology Impression Knee X-Ray 07/20/22 15:00 IMPRESSION: Status post total knee replacement. There is good alignment. Postoperative soft tissue changes. Electronically Signed: Maulik Stafford MD at 15:47 EDT , Physical Exam Const alert, oriented x3 and no apparent distress General Appearance: cooperative Extremity Extremity Narrative: Right knee dressing clean dry intact compartment soft neurovascular intact EHL tibialis anterior gastrocsoleus intact sensation to light touch 2/4 pedal pulses Assessment & Plan Assessment/Plan (1) S/P total knee arthroplasty: PLAN: Plan Postop day #1 right total knee arthroplasty PT OT weightbearing as tolerated Erlinad ferguson SCDs Outpatient physical therapy upon discharge Shower postop day #3 Follow-up in the office 2 weeks DC home tomorrow after a.m. PT
--- NOTE | 2022-07-21 13:00 | DCINST_ITS ---
Discharge Instructions Diet Discharge Diet: No restrictions Dressing / Incision Call your doctor if you observe: Shortness of breath and Chest pain Additional Dressing/Incision Instructions:: Ice and elevate lower extremities 2 weeks while not ambulating. Ambulation is encouraged. Weight bearing as tolerated. Use assistive devise for stability. Encourage FULL knee extension and flexion 1 time EVERY time you get up and down and MULTIPLE times per day. No showering 72 hours after surgery. Begin showering postop day #3. Remove the dressing prior to shower and gently wash with warm water and antibacterial soap then pat dry and place abdominal pad (or plain gauze) and LOUIE hose over top. This is to be done daily. Do not submerge for 3 weeks. If not showering daily after the initial 72 hours then you must clean incision and change dressing daily. Do not allow animals near the incision area. Keep clean. Follow anti- coagulation recommendations as prescribed. Do not take any NSAIDs while on blood thinner. Do not take any additional narcotic pain medication other than what was prescribed on your surgery day without discussing with physician. Narcotic medication can be addictive. Do not drink alcohol while taking narcotics. Supplement narcotic prescription with acetaminophen 1000 mg 4 times a day. Start physical therapy. If you are not currently scheduled for physical therapy or you are unsure of appointment time please call office [facility] to arrange. Call Dr. Gates with any concerns. Follow Up Care Please Follow Up With: Saud Gates DO When: 2 weeks Test Results: Test results from this visit will be discussed in further detail at your follow- up appointment, if applicable. Discharge Plan Admission Admit Date/Time: 07/20/22 09:26 Primary Reason for Your Visit: Right total knee arthroplasty Attending Provider: Saud Gates Primary Care Provider: Cristopher Kline Discharge Orders/Prescriptions Prescriptions: New acetaminophen [acetaminophen] 500 mg tablet 1,000 mg PO Q6H PRN Qty: 100 0RF Eliquis 2.5 mg tablet 2.5 mg PO BID Qty: 30 0RF oxycodone 5 mg tablet 5 - 10 mg PO Q4H PRN (Reason: pain) 7 Days Qty: 60 0RF Continued atorvastatin [Lipitor] 10 mg tablet 10 mg PO QHS sertraline [Zoloft] 25 mg tablet 25 mg PO DAILY multivitamin Tablet 1 tab PO DAILY calcium carbonate [Calcium 500] 500 mg calcium (1,250 mg) tablet 500 mg PO BID fluticasone propionate [Allergy Relief (fluticasone)] 50 mcg/actuation spray,suspension 1 spray intranasal BID PRN (Reason: Allergy Symptoms) Rx Instructions: administer into each nostril Saccharomyces boulardii [Daily Probiotic (S. boulardii)] 250 mg capsule 250 mg PO BID omeprazole 20 mg capsule,delayed release(DR/EC) 20 mg PO .as needed Discontinued acetaminophen [Tylenol 8 Hour] 650 mg tablet extended release 650 mg PO Q12H Referrals / Follow Up: Cristopher Kline MD [Primary Care Provider] - Disposition Disposition (needs filled in before D/C Order can be placed): Home, Self Care
[2022-07-21 14:53] VITALS: BP 122/59; PULSE 72; RESP 16; TEMP 36.6; O2SAT 96
[2022-07-21] MEDS: Atorvastatin Calcium 10 MG Tablet PO (20:15)
[2022-07-21 21:00] VITALS: BP 130/53; PULSE 75; RESP 16; TEMP 36.6; O2SAT 98
[2022-07-22] MEDS: oxyCODONE 5 MG Tablet PO ×3 (00:19→09:51)
[2022-07-22 05:01] LABS: Hematocrit 30.6 % (37-47); Mean Corp Hgb Conc 32.7 g/dL (32-36); Mean Corpuscular Hgb 27.9 pg (27.0-32.0); Mean Corpuscular Volume 85.5 fL (81-99); Mean Platelet Vol. 8.7 fl (6.2-12.0); Platelet Count 229 K/mm3 (150-450); RBC Distribution Width CV 14.8 % (11.6-14.6); RBC Distribution Width SD 46.5 fl (35.1-43.9); Red Blood Count 3.58 M/mm3 (4.2-5.4); White Blood Count 9.5 K/mm3 (4.4-11.0)
[2022-07-22] MEDS: Acetaminophen 500 MG Tablet 1000 MG PO (06:18)
[2022-07-22 06:24] VITALS: BP 131/87; PULSE 72; RESP 18; TEMP 36.6; O2SAT 98
[2022-07-22 08:43] VITALS: BP 123/62; PULSE 76; RESP 18; TEMP 36.7; O2SAT 98
[2022-07-22] MEDS: Pantoprazole Sodium 20 MG Tablet PO (08:52)
[2022-07-22] MEDS: APIXABAN 2.5 MG TABLET (WCH) PO (08:52)
== END 2022-07-22 10:15 | disposition home or self-care (01) | DRG 470 ==
LOC: ACINP 09:28 → MS3 15:02
PROVIDERS: Anesthesiology; Admitting Provider Orthopaedic Surgery; PCP Family Medicine; Referring Provider Orthopaedic Surgery; Visit Provider Orthopaedic Surgery
PROC: 0SRC0JZ Replacement of Right Knee Joint with Synthetic Substitute, Open Approach (ICD-10-PCS; CPT 27447; principal; 2022-07-20 11:30)
DX: M17.11 Unilateral primary osteoarthritis, right knee (principal); E78.00 Pure hypercholesterolemia, unspecified; K21.9 Gastro-esophageal reflux disease without esophagitis; F41.9 Anxiety disorder, unspecified; F32.A Depression, unspecified; Z79.899 Other long term (current) drug therapy
CPT/HCPCS: 36415; 73560; 80048; 82962; 82985; 83036; 83735; 85027; 85610; 85730; 86850; 86900; 86901; 87081; 88305; 88311; 94668; 97110; 97116; 97162; 97166; 97530; 97535; C1776; J7120; A4216; J2405; J3475; J3490

== ENCOUNTER 2022-09-24 10:00 | Outpatient (RCR) | payer MEDICARE, OTHER, SELFPAY ==
--- NOTE | 2022-07-23 12:58 | HP.PTEVAL_ITS ---
Patient's Visit Information ELOY BEYER is a 77 year old F referred to Physical Therapy by Dr. Saud Gates DO with a diagnosis of R TKA 07/20/22. Date of Evaluation: 07/23/22 Physical Therapist: Rio Galindo, PT, ATC - Visit Plan Frequency: 2-3x /Week Duration: 4-6 Weeks Plan: R knee PROM/mobs, stretching and strengthening, balance and proprio, core strengthening, nustep, and HEP - Subjective DOS: 07/20/22. Pt reports she had a R TKA performed at that time. Pt notes she spent 2 nights at the hospital after her surgery where she had PT both days. Pt reports she is in a lot of pain today. Pt notes she has been in a lot of pain s josseline the nerve block wore off. Pt reports no prior Hx of R knee surgery prior to this one. Pt reports she is still a little numb surrounding her injection. Pt has 2 steps into her house which she negotiates one step at a time. Pt reports sleep difficulty at this time without taking her pain meds. Pt is retired at this time. Pt reports her and her are avid walkers and love to go on daily walks. Pt also notes she would like to be able to ride a bike in the future as well. Pt notes her and her like to go to [place] in the winter and she hopes to be able to go without any limitations. Pt reports her pain is currently 3/10, but increases to 10/10 at worst. - Pain R knee Pain Intensity (Out of 10): 3 Pain Intensity Range: 10 - Objective Neuro: B LE sensation is WNL to light touch. Girth at joint line: L knee 37 cm, R knee 39 cm. ROM: L knee 0-110 degrees; R knee 0-35-83 Degrees. MMT: L knee flex= 23, ext= 33 #F; R knee flex= 5, ext= 0 #F. TU.67 - Balance/Special Test Scores WOMAC Total Score: 79 WOMAC Percentatge: 17.7100 - Goals Goal 1:: Decrease R knee pain x 50% to aid with sleep Goal Time Frame: 4-6 Weeks Goal 2:: Increase R knee ROM x 30 degrees to aid with restoring a more normalized gait pattern Goal Time Frame: 4-6 Weeks Goal 3:: Increase R knee strength x 20 #F to aid with stair negotiation Goal Time Frame: 4-6 Weeks Goal 4:: I with HEP Goal Time Frame: 4-6 Weeks - Rehabilitation Potential Physical Therapy Diagnosis: Pt has R knee pain, weakness, and limited ROM secondary to R TKA Rehabilitation Potential: Good - Anticipated Interventions Patient/Client Instruction: Educate patient on: Condition, Plan of Care For the Purpose of:: To improve self management Therapeutic Exercise to Include: Strength training, Endurance training, Balance training, Flexibilty training, Gait and locomotor training, Passive ROM, Active ROM, Dynamic Lumbar Stabilization For the Purpose of:: To decrease pain, To increase ROM, To improve muscle performance and motor function Cryotherapy (ice pack, ice massage): Yes For the Purpose of:: To decrease pain Thank you for the opportunity to evaluate your patient. For Medicare and Medicare HMO plans, please review the plan of care and approve it. It will need to be FAXED BACK to us at [phone] for Medicare purposes. For Medicare only, by signing this I certify the plan of care. Please let me know if there are questions or concerns regarding this plan of care. Physician Signature: Date:
--- NOTE | 2022-08-27 09:33 | HP.PTREVAL_ITS ---
Re-Evaluation Intro: Dr. Saud aGtes, DO, It has been my pleasure to treat ELOY BEYER over the last 11 visits for R TKA 07/20/22. Please see the progress note below for an update on the physical therapy plan of care! Subjective Subjective: I overdid it at home yesterday. I am still sore today. I had to take pain meds last night. Objective Objective/Function: R knee pain ranges from 3-4/10 R knee ROM: 0-15-110 degrees R knee MMT: flex= 16, ext= 29 #F Plan Plan Plan: R knee PROM/mobs, stretching and strengthening, balance and proprio, core strengthening, nustep, and HEP Balance/Gait/Functional tests Balance/Special Test Scores Lower Extremity Functional Score: 52 WOMAC Total Score: 79 WOMAC Percentage: 17.7100 Goals Goals Goal 1:: Decrease R knee pain x 50% to aid with sleep Goal Time Frame: 4-6 Weeks Goal Progress: Progressing Goal 2:: Increase R knee ROM x 30 degrees to aid with restoring a more normalized gait pattern Goal Time Frame: 4-6 Weeks Goal Progress: Goal Met Goal 3:: Increase R knee strength x 20 #F to aid with stair negotiation Goal Time Frame: 4-6 Weeks Goal Progress: Goal Met Goal 4:: I with HEP Goal Time Frame: 4-6 Weeks Goal Progress: Progressing Goal 5:: Pt will be able to ambulate greater than 1000 feet to aid with c ommunity ambulation Goal Time Frame: 4-6 Weeks Goal Progress: New goal Anticipated Interventions Anticipated Interventions Patient/Client Instruction: Educate patient on: Condition and Plan of Care For the Purpose of:: To improve self management Therapeutic Exercise to Include: Strength training, Endurance training, Balance training, Flexibilty training, Gait and locomotor training, Passive ROM, Active ROM and Dynamic Lumbar Stabilization For the Purpose of:: To decrease pain, To increase ROM and To improve muscle performance and motor function Cryotherapy (ice pack, ice massage): Yes For the Purpose of:: To decrease pain Re-Evaluation Ending Re-evaluation ending: Please do not hesitate to contact me at [phone] by phone or if you have questions or concerns regarding this new plan of care! Sincerely, Rio Galindo, PT, ATC
--- NOTE | 2022-09-24 10:38 | HP.PTDCSUM ---
Discharge Summary D/C summary: It has been my pleasure to treat ELOY BEYER referred by Dr. Saud Gates DO, with the diagnosis of R TKA 07/20/22 for a total of 18 visit(s). Discharge Date: Please see the following information for a summary of their discharge status. Subjective Subjective: Pt reports she is ready to continue I'ly Pain R knee: Pain Intensity (Out of 10): 0 Overall Improvement % Improvement: 85 Objective Objective/Function: R knee pain ranges from 0-8/10 R knee ROM: 0-10-115 degrees R knee MMT: flex= 29, ext= 34 #F Pt is I with HEP Goals Goal 1:: Decrease R knee pain x 50% to aid with sleep Goal Progress: Goal Met Goal 2:: Increase R knee ROM x 30 degrees to aid with restoring a more normalized gait pattern Goal Progress: Goal Met Goal 3:: Increase R knee strength x 20 #F to aid with stair negotiation Goal Progress: Goal Met Goal 4:: I with HEP Goal Progress: Goal Met Goal 5:: Pt will be able to ambulate greater than 1000 feet to aid with community ambulation Goal Progress: Goal Met Plan Plan: Discharge to HEP D/C Information d/c sentence: If there are questions or concerns regarding this patient's physical therapy, please feel free to call me at [phone]. Thank you for the referral of this patient. Sincerely, Rio Galindo, PT, ATC Balance/Gait/Functional tests Balance/Special Test Scores Lower Extremity Functional Score: 52 WOMAC Total Score: 13 WOMAC Percentage: 86.4600
== END 2022-09-24 13:24 | disposition home or self-care (01) ==
LOC: PT 10:00
PROVIDERS: PCP Family Medicine; Referring Provider Orthopaedic Surgery; Visit Provider Orthopaedic Surgery
DX: M17.11 Unilateral primary osteoarthritis, right knee (principal); Z96.651 Presence of right artificial knee joint
CPT/HCPCS: 97110; 97140; 97161; 97164

== ENCOUNTER → 2022-10-29 | Outpatient (CLI) | payer MEDICARE, OTHER, SELFPAY ==
[2022-10-29 12:38] LABS: Anion Gap 4 (5-15); BUN 19 mg/dL (7-18); BUN/Creat Ratio 24.5 RATIO (10-20); Chloride 104 mmol/L (98-107); Cholesterol 154 mg/dL (200); Creatinine, Serum 0.77 mg/dL (0.55-1.02); EST Glomerular Filtration Rate 77 mL/min (>60); Est Glom Filt Rate - Afr Amer 93 mL/min (>60); Glucose 99 mg/dL (74-106); High Density Lipoprotein 68 mg/dL; Potassium 4.2 mmol/L (3.5-5.1); Sodium Level 136 mmol/L (136-145); Triglycerides 82 mg/dL; Very Low Density Lipoprotein 16 mg/dL (5-40)
== END | disposition home or self-care (01) ==
LOC: MFPLAB 09:59
PROVIDERS: PCP Family Medicine; Visit Provider Family Medicine
DX: E78.5 Hyperlipidemia, unspecified (principal)
CPT/HCPCS: 36415; 80048; 80061

== ENCOUNTER → 2023-01-18 | Outpatient (CLI) | payer MEDICARE, OTHER, SELFPAY ==
--- NOTE | 2023-01-18 09:49 | BI_ITS ---
MAMMOGRAPHY - BILATERAL SCREENING REASON FOR EXAM: Female, 77 years old. Routine annual screening examination. PERTINENT HISTORY: Mother with breast cancer. Remote right excisional breast biopsy. TECHNIQUE: Digital bilateral breast latasha (3D mammographic acquisition) in the CC and MLO projections. 2-D mediolateral oblique (MLO) and craniocaudad (CC) views of both breasts were obtained. CAD: Full Field Digital Mammography with Computer Added Detection was performed. COMPARISON: Comparison is made with prior study dated December 30, 2021 and November 25, 2020. FINDINGS: Breast Composition: The breasts are almost entirely fatty. There are no dominant masses or suspicious calcifications. No other significant abnormalities are identified. There has been no significant change since the prior study. BI/SCRN MAMM (CAD)W/LATASHA BILAT IMPRESSION: Stable bilateral screening mammogram. Yearly follow-up mammogram recommended. (A) ASSESSMENT CATEGORY: BIRADS Category 1: Negative. A letter regarding these results will be sent to the patient by the facility within 30 days. Approximately 10% of breast cancers are not detected by mammography. A normal mammogram should not delay biopsy of a clinically suspicious abnormality. [id number] Electronically Signed: Maulik Stafford MD at 14:57 EST ,
--- NOTE | 2023-01-18 09:54 | BD_ITS ---
STUDY: DUAL ENERGY X-RAY ABSORPTIOMETRY / DXA REASON FOR EXAM: Female, 77 years old. N95.9 TECHNIQUE: Bone Mineral Density (BMD) measurements of lumbar spine and bilateral hips were obtained. COMPARISON: Comparison is made with prior study November 27, 2020. FINDINGS: Lumbar Spine (L1-L4): g/cm2 (1.217) / T-score (1.5) / Z-score (4.2) Findings are suggestive of normal bone density with a low fracture risk. Left Femur Total: g/cm2 (0.789) / T-score (-1.3) / Z-score (0.7) Left Femoral Neck: g/cm2 (0.616) / T-score (-2.1) / Z-score (0.2) Right Femur Total: g/cm2 (0.813) / T-score (-1.1) / Z-score (0.9) Right Femoral Neck: g/cm2 (0.668) / T-score (-1.6) / Z-score (0.6) The T-Scores on the most recent prior examination were: Lumbar Spine (L1-L4): There has been worsening of bone density since the previous examination. Left Femur Total: which represents an improvement of 0.6%. Right Femur Total: which represents a worsening of 5.4%. BD/Dexa Bone Density Study IMPRESSION: The patient is considered osteopenic as outlined below according to World Nik Organization (WHO) criteria with a moderate fracture risk. There has been worsening of bone density since the previous examination. Reference Information: The T-score is the number of standard deviations above or below the standard which is normal for young adults at their peak bone mineral density. The World Health Organization (WHO) interprets the T-scores as follows: Above -1 Normal bone density Between -1 and -2.5 Osteopenia Equal to / or below -2.5 Osteoporosis As a practical clinical guideline, osteopenia may be graded as follows: Mild -1 through -1.5 Moderate -1.6 through -2.0 Severe -2.1 through -2.4 The Z-score is the number of standard deviations above or below age-matched controls. A Z-score of less than -1.5 would be considered abnormal. References: 1. NIH Osteoporosis and Related Bone Diseases www osteo.org 2. International Society for Clinical Densitometry www iscd.org 3. National Osteoporosis Foundation www nof.org Electronically Signed: Maulik Stafford MD at 10:12 EST ,
== END | disposition home or self-care (01) ==
LOC: OPBD 09:48
PROVIDERS: PCP Family Medicine; Referring Provider Family Medicine; Visit Provider Family Medicine
DX: Z12.31 Encounter for screening mammogram for malignant neoplasm of breast (principal); N95.9 Unspecified menopausal and perimenopausal disorder
CPT/HCPCS: 77063; 77067; 77080

== ENCOUNTER → 2023-05-25 | Outpatient (CLI) | payer MEDICARE, OTHER, SELFPAY ==
--- NOTE | 2023-05-25 09:38 | RAD_ITS ---
STUDY: X-RAY - RIGHT SHOULDER REASON FOR EXAM: Female, 78 years old. PAIN TECHNIQUE: 4 views of the right shoulder. COMPARISON: None. FINDINGS: Normal glenohumeral articulation. There is hypertrophic acromioclavicular arthrosis. Normal acromion. Normal humeral head and visualized proximal humerus. The soft tissue structures are unremarkable. There is no demonstrated fracture. Normal visualized pulmonary apex. RAD/Shoulder min 2 Views IMPRESSION: Hypertrophic acromioclavicular arthrosis. No demonstrated fracture. Electronically Signed: Blade Burrell MD at 9:08 EDT ,
== END | disposition home or self-care (01) ==
PROVIDERS: PCP Family Medicine; Referring Provider Family Medicine; Visit Provider Family Medicine
DX: M25.511 Pain in right shoulder (principal)
CPT/HCPCS: 73030

== ENCOUNTER → 2023-12-09 | Outpatient (CLI) | payer MEDICARE, OTHER, SELFPAY ==
[2023-12-09 11:23] LABS: Vitamin D,25 Hydroxy 46.1 ng/mL
[2023-12-09 11:53] LABS: Anion Gap 5 (5-15); BUN 19 mg/dL (7-18); BUN/Creat Ratio 25.1 RATIO (10-20); Calcium,Total 9.5 mg/dL (8.5-10.1); Chloride 105 mmol/L (98-107); Cholesterol 174 mg/dL (200); Creatinine, Serum 0.76 mg/dL (0.55-1.02); EST Glomerular Filtration Rate 78 mL/min (>60); Est Glom Filt Rate - Afr Amer 95 mL/min (>60); Glucose 105 mg/dL (74-106); High Density Lipoprotein 62 mg/dL; Potassium 4.2 mmol/L (3.5-5.1); Sodium Level 136 mmol/L (136-145); Triglycerides 120 mg/dL; Very Low Density Lipoprotein 24 mg/dL (5-40)
== END | disposition home or self-care (01) ==
LOC: MFPLAB 08:59
PROVIDERS: PCP Family Medicine; Visit Provider Family Medicine
DX: Z00.00 Encounter for general adult medical examination without abnormal findings (principal)
CPT/HCPCS: 36415; 80048; 80061; 82306

== ENCOUNTER → 2024-01-24 | Outpatient (CLI) | payer MEDICARE, OTHER, SELFPAY ==
--- NOTE | 2024-01-24 12:55 | BI_ITS ---
MAMMOGRAPHY - BILATERAL SCREENING REASON FOR EXAM: Female, 78 years old. Routine annual screening examination. PERTINENT HISTORY: Mother with breast cancer. Remote right excisional breast biopsy. TECHNIQUE: Digital bilateral breast haydee (3D mammographic acquisition) in the CC and MLO projections. 2-D mediolateral oblique (MLO) and craniocaudad (CC) views of both breasts were obtained. CAD: Full Field Digital Mammography with Computer Added Detection was performed. COMPARISON: Comparison is made with prior study dated January 18, 2023 and December 30, 2021. FINDINGS: Breast Composition: The breasts are almost entirely fatty. There are no dominant masses or suspicious calcifications. No other significant abnormalities are identified. There has been no significant change since the prior study. BI/SCREENING MAMM (CAD), BILAT IMPRESSION: Stable bilateral screening mammogram. Yearly follow-up mammogram recommended. (A) ASSESSMENT CATEGORY: BIRADS Category 1: Negative. A letter regarding these results will be sent to the patient by the facility within 30 days. Approximately 10% of breast cancers are not detected by mammography. A normal mammogram should not delay biopsy of a clinically suspicious abnormality. [id number] Electronically Signed: Maulik Stafford MD at 13:44 EST ,
== END | disposition home or self-care (01) ==
LOC: OPBI 12:55
PROVIDERS: PCP Family Medicine; Referring Provider Family Medicine; Visit Provider Family Medicine
DX: Z12.31 Encounter for screening mammogram for malignant neoplasm of breast (principal)
CPT/HCPCS: 77067

== ENCOUNTER → 2024-06-15 | Outpatient (CLI) | payer MEDICARE, OTHER, SELFPAY ==
--- NOTE | 2024-06-15 12:49 | CT_ITS ---
PROCEDURE: SINUS/FACIAL BONE REASON FOR EXAM: SINUSITIS TECHNIQUE: CT of the paranasal sinuses without contrast. Coronal and Sagittal reconstruction series were provided. One or more dose reduction techniques were used (e.g., Automated exposure control, adjustment of the mA and/or kV according to patient size, use of iterative reconstruction technique). COMPARISON: None. FINDINGS: Frontal: Unremarkable Ethmoid: Minimal mucosal thickening along the anterior right ethmoid sinus. Sphenoid: Unremarkable Maxillary: 8 mm mucosal retention cyst or polyp along the anterior inferior aspect of the right maxillary sinus. Turbinates: Unremarkable Nasal Septum: Midline Mastoids/Middle Ears: Unremarkable CT/Sinus/Facial Bone IMPRESSION: Mucosal retention cyst or polyp along the anterior medial aspect of the right m axillary sinus. Reading [id number]
== END | disposition home or self-care (01) ==
LOC: CT 12:44
PROVIDERS: PCP Family Medicine; Referring Provider Otolaryngology; Visit Provider Otolaryngology
DX: J32.8 Other chronic sinusitis (principal)
CPT/HCPCS: 70486

== ENCOUNTER → 2025-01-10 | Outpatient (CLI) | payer MEDICARE, OTHER, SELFPAY ==
--- NOTE | 2025-01-10 10:13 | RAD_ITS ---
PROCEDURE: SHOULDER MIN 2 VIEWS 01/10/2025 REASON FOR EXAM: SHOULDER PAIN TECHNIQUE: Procedure Code: RADSH Modality: DX Procedure: SHOULDER MIN 2 VIEWS Laterality: FINDINGS: No evidence acute fracture or dislocation. [id number] glenohumeral and mild acromioclavicular degenerative changes. The left lung apex is clear. RAD/Shoulder min 2 Views IMPRESSION: Osteoarthrosis. Reading Location: [id number]
== END | disposition home or self-care (01) ==
LOC: MTRAD 10:11
PROVIDERS: PCP Family Medicine; Referring Provider Family Medicine; Visit Provider Family Medicine
DX: M25.512 Pain in left shoulder (principal)
CPT/HCPCS: 73030